=== PATIENT | male | born 1940 | race Caucasian/White ===

== ENCOUNTER 2017-03-13 10:10 | Inpatient (IN) | payer MEDICARE ==
--- NOTE | 2017-03-13 10:20 | EDM.PDOC ---
ED HPI GENERAL MEDICAL PROBLEM - General Chief Complaint: General Stated Complaint: Weakness Time Seen by Provider: 03/13/17 10:19 Source of Information: Reports: Patient, EMS Notes Reviewed, RN, RN Notes Reviewed History Limitations: Reports: No Limitations - History of Present Illness INITIAL COMMENTS - FREE TEXT/NARRATIVE: Patient is brought to the ED at [facility] via EMS for a chief complaint of weakness. Patient does not have a PCP and has not seen a medical provider in many many years. He currently does not take any prescription medications. He states local home health agency has been helping his with daily needs. According to the EMS crew, home health has not been allowed into the patients home in over a month. Home health called EMS for a welfare check. According to patient he has been feeling weak for about a month. Patient offers no specific complaints. Patient only complaint is feeling weak. Onset: Unknown/Unsure - Related Data Allergies Allergy/AdvReac Type Severity Reaction Status Date / Time No Known Allergies Allergy Verified 03/13/17 10:31 Home Meds: Home Meds . [No Known Home Meds] 03/13/17 [History] ED ROS GENERAL - Review of Systems Review Of Systems: See Below Constitutional: Reports: Weakness. Denies: Fever, Chills, Decreased Appetite Respiratory: Denies: Shortness of Breath, Cough Cardiovascular: Denies: Chest Pain, Palpitations GI/Abdominal: Denies: Abdominal Pain, Nausea, Vomiting Skin: Reports: No Symptoms Neurological: Reports: No Symptoms. 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), Left Eye: PERRL, Bilateral Eye: Normal Inspection Throat/Mouth: No Airway Compromise, Other (very poor dentition; multiple missing teeth; severe gingivitis; dry mucous membranes) Neck: Normal Inspection, Supple Respiratory/Chest: No Respiratory Distress, Lungs Clear, Normal Breath Sounds Cardiovascular: Normal Peripheral Pulses, Regular Rate, Rhythm Peripheral Pulses: 2+: Radial (L), Radial (R) GI/Abdominal: Normal Bowel Sounds, Soft, Non-Tender Neurological: Alert, Oriented Skin Exam: Warm, Dry, Intact EKG INTERPRETATION EKG Date: 03/13/17 Time: 10:28 Rhythm: NSR Rate (Beats/Min): 88 [place]: Normal P-Wave: Present QRS: Normal ST-T: Normal QT: Normal FL/PQ Interval: 0.12 Comparison: NA - No Prior EKG EKG Interpretation Comments: 1. Sinus Rhythm 2. ST Deviation and moderate T-wave abnormality, consider anterolateral ischemia Course - Vital Signs Last Recorded V/S: Last Vital Signs Temp 36.4 C 03/13/17 10:10 Pulse 103 H 03/13/17 10:10 Resp 16 03/13/17 10:10 BP 151/100 H 03/13/17 10:10 Pulse Ox 99 03/13/17 10:10 - Orders/Labs/Meds Orders: Active Orders 24 hr Category Date Time Status EKG 12 Lead [EKG Documentation Completion] [RC] STAT Care 03/13/17 10:21 Active Chest 1V Frontal [CR] Stat Exams 03/13/17 10:20 Taken UA W/MICROSCOPIC [URIN] Stat Lab 03/13/17 11:52 Uncollected Labs: Laboratory Tests 03/13/17 03/13/17 03/13/17 Range/Units 10:36 10:36 10:36 WBC 3.3 L (4.0-10.0) x10^3/uL RBC 5.03 (4.5-6.0) x10^6/uL Hgb 15.5 (14.0-18.0) g/dL Hct 43.6 (40.0-52.0) % MCV 86.7 (78.0-93.0) fL MCH 30.8 (26.0-32.0) pg MCHC 35.6 (32.0-36.0) g/dL RDW Coeff of Vernell 12.8 (10.0-15.0) % Plt Count 169 (130-400) x10^3/uL Neut % (Auto) 57.7 (50.0-80.0) % Lymph % (Auto) 27.4 (25.0-50.0) % [place] % (Auto) 14.6 H (2.0-11.0) % Eos % (Auto) 0.0 (0.0-4.0) % Baso % (Auto) 0.3 (0.2-1.2) % PT 11.6 (9.8-11.8) SEC INR 1.1 L (2.0-3.5) Sodium (136-145) mmol/L Potassium (3.5-5.1) mmol/L Chloride (98-107) mmol/L Carbon Dioxide (21-32) mmol/L BUN (7-18) mg/dL Creatinine (0.70-1.30) mg/dL Est Cr Clr Drug Dosing Estimated GFR (MDRD) Glucose (74-106) mg/dL Lactic Acid (0.4-2.0) mmol/L Calcium (8.5-10.1) mg/dL Corrected Calcium (8.5-10.1) mg/dL Magnesium (1.8-2.4) mg/dL Total Bilirubin (0.2-1.0) mg/dL AST (15-37) U/L ALT (16-63) U/L Alkaline Phosphatase (46-116) U/L Creatine Kinase 72 (39-308) U/L Creatine Kinase Index TNP CK-MB (CK-2) TNP Troponin I < 0.017 (<=0.056) ng/mL C-Reactive Protein (<=0.9) mg/dL Total Protein (6.4-8.2) g/dL Albumin (3.4-5.0) g/dL Globulin Albumin/Globulin Ratio 03/13/17 03/13/17 Range/Units 10:36 10:36 WBC (4.0-10.0) x10^3/uL RBC (4.5-6.0) x10^6/uL Hgb (14.0-18.0) g/dL Hct (40.0-52.0) % MCV (78.0-93.0) fL MCH (26.0-32.0) pg MCHC (32.0-36.0) g/dL RDW Coeff of Verenll (10.0-15.0) % Plt Count (130-400) x10^3/uL Neut % (Auto) (50.0-80.0) % Lymph % (Auto) (25.0-50.0) % [place] % (Auto) (2.0-11.0) % Eos % (Auto) (0.0-4.0) % Baso % (Auto) (0.2-1.2) % PT (9.8-11.8) SEC INR (2.0-3.5) Sodium 143 (136-145) mmol/L Potassium 3.0 L (3.5-5.1) mmol/L Chloride 98 (98-107) mmol/L Carbon Dioxide 25 (21-32) mmol/L BUN 25 H (7-18) mg/dL Creatinine 1.5 H (0.70-1.30) mg/dL Est Cr Clr Drug Dosing TNP Estimated GFR (MDRD) 45 Glucose 128 H (74-106) mg/dL Lactic Acid 3.8 H* (0.4-2.0) mmol/L Calcium 9.4 (8.5-10.1) mg/dL Corrected Calcium 9.56 (8.5-10.1) mg/dL Magnesium 1.8 (1.8-2.4) mg/dL Total Bilirubin 3.2 H (0.2-1.0) mg/dL AST 20 (15-37) U/L ALT 18 (16-63) U/L Alkaline Phosphatase 81 (46-116) U/L Creatine Kinase (39-308) U/L Creatine Kinase Index CK-MB (CK-2) Troponin I (<=0.056) ng/mL C-Reactive Protein < 0.3 (<=0.9) mg/dL Total Protein 7.6 (6.4-8.2) g/dL Albumin 3.8 (3.4-5.0) g/dL Globulin 3.8 Albumin/Globulin Ratio 1.00 - Radiology Interpretation Free Text/Narrative:: CXR: No acute process - see scanned report in EMR Departure - Departure Time of Disposition: 12:09 Disposition: Refer to Observation Condition: Fair Clinical Impression: Acute kidney injury (nontraumatic), Dehydration, Weakness - Discharge Information - Problem List Review Problem List Initiated/Reviewed/Updated: Yes - My Orders Last 24 Hours: My Active Orders 03/13/17 10:20 Chest 1V Frontal [CR] Stat 03/13/17 10:21 EKG 12 Lead [EKG Documentation Completion] [RC] STAT 03/13/17 11:52 UA W/MICROSCOPIC [URIN] Stat - Assessment/Plan Admission H&P: Please use this note as an admission H&P Last 24 Hours: My Active Orders 03/13/17 10:20 Chest 1V Frontal [CR] Stat 03/13/17 10:21 EKG 12 Lead [EKG Documentation Completion] [RC] STAT 03/13/17 11:52 UA W/MICROSCOPIC [URIN] Stat Plan: Labs and xray reviewed. Patient will be admitted to observation for dehydration , MILLY, and weakness. Patient aware and agrees with admission.
[2017-03-13 11:40] LABS: CHLORIDE,CL 98 mmol/L (98-107); SODIUM,NA 143 mmol/L (136-145)
[2017-03-13] MEDS ORDERED: Acetaminophen 325 MG Tab PO PRN (13:03)
[2017-03-13] MEDS ORDERED: Ondansetron 4 MG Tab.DIS PO PRN (13:03)
[2017-03-13] MEDS: Sodium Chloride 0.9% with KCl 1,000 ML IV SCH ×2 (13:53→21:29)
--- NOTE | 2017-03-13 14:41 | PCM.HP ---
H&P History of Present Illness - General Date of Service: 03/13/17 Admit Problem/Dx: Admission Diagnosis/Problem Admission Diagnosis/Problem Acute kidney injury Dehydration Weakness Source of Information: Patient, EMS Notes Reviewed, RN, RN Notes Reviewed History Limitations: Reports: No Limitations - History of Present Illness Initial Comments - Free Text/Narative: 77-year-old patient was seen in the emergency room earlier today after he was brought in by EMS for weakness. According to the EMS crew, the patient had been seen by home health over course of time. EMS was called by [facility] because the patient has not allowed home health in to his home for the past month and they were concerned. Upon EMS arrival the patient had complained of severe weakness so he was brought to the [facility] emergency room for further evaluation and possible treatment. During his ER stay, the patient did not have any chest pain or shortness of breath. The patient did not have a cough. The patient denied any abdominal complaints. The patient denied any neurological deficits. Patient denies any pain issues. The patient's only complaint was generalized weakness. The patient states that he has not seen a medical provider and many many years. The patient does not have any allergies. The patient is not taking any prescription home medications. It is unclear why home health is involved with this patient. His ER labs showed acute kidney injury secondary to dehydration. Assessment reyna the patient did have generalized weakness upon exam. The patient's lactic acid level is elevated at 3.8 with a low white blood cell count of 3.3. The patient' s lactic acid could be elevated due to his weakness and muscle atrophy. The etiology of low white blood cell count is unknown at this time. According to the [facility] case picker, the patient actually has been seen by the senior center here in the [facility]. The [facility] had been delivering meals to the patient but has been refusing over the past month. 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 Once the patient is medically stable, he will be set up with an appointment at [facility] in [place] for a follow-up appointment. Onset of Symptoms: Reports: Unknown/Unsure - Related Data Allergies/Adverse Reactions: Allergies Allergy/AdvReac Type Severity Reaction Status Date / Time No Known Allergies Allergy Verified 03/13/17 10:31 Home Medications: Home Meds . [No Known Home Meds] 03/13/17 [History] Past Medical History - Past Health History Medical/Surgical History: Denies Medical/Surgical History Social & Family History - Family History Family Medical History: Noncontributory - Tobacco Use Smoking Status *Q: Unknown Ever Smoked - Recreational Drug Use Recreational Drug Use: No H&P Review of Systems - Review of Systems: Review Of Systems: See Below General: Reports: Weakness. Denies: Fever, Chills, Decreased Appetite Pulmonary: Denies: Shortness of Breath, Cough Cardiovascular: Denies: Chest Pain, Palpitations Gastrointestinal: Denies: Abdominal Pain, Nausea, Vomiting Musculoskeletal: Reports: No Symptoms Skin: Reports: No Symptoms Neurological: Reports: No Symptoms. Denies: Dizziness, Headache Exam - Exam Exam: See Below - Vital Signs Vital Signs: Last Vital Signs Temp 36.0 C 03/13/17 12:33 Pulse 102 H 03/13/17 12:33 Resp 12 03/13/17 12:33 BP 137/91 H 03/13/17 12:33 Pulse Ox 100 03/13/17 12:33 Weight: 74.435 kg - Exam General: Alert, Oriented Neck: Supple Lungs: Clear to Auscultation, Normal Respiratory Effort Cardiovascular: Regular Rate, Regular Rhythm, Normal S1, Normal S2 GI/Abdominal Exam: Normal Bowel Sounds, Soft, Non-Tender Peripheral Pulses: 2+: Radial (L), Radial (R) Skin: Warm, Dry, Intact Neuro Extensive - Mental Status: Alert, Oriented x3 - Patient Data Result Diagrams: 03/13/17 10:36 03/13/17 10:36 *Q Meaningful Use (ADM) - VTE *Q VTE Criteria *Q: VTE Mechanical Contraindications *Q: At Risk for Falls - Stroke *Q Stroke Criteria *Q: - AMI *Q AMI Criteria *Q: - Problem List (1) Acute kidney injury (nontraumatic) SNOMED Code(s): 25457129 ICD Code: N17.9 - ACUTE KIDNEY FAILURE, UNSPECIFIED Status: Acute Priority: High Current Visit: Yes (2) Weakness SNOMED Code(s): 77289791 ICD Code: R53.1 - WEAKNESS Status: Acute Priority: Medium Current Visit : Yes (3) Dehydration SNOMED Code(s): 88762300 ICD Code: E86.0 - DEHYDRATION Status: Acute Priority: Medium Current Visit: Yes (4) Lactic acidosis SNOMED Code(s): 20666765 ICD Code: E87.2 - ACIDOSIS Status: Acute Priority: Medium Current Visit : Yes (5) Hypokalemia SNOMED Code(s): 49639572 ICD Code: E87.6 - HYPOKALEMIA Status: Acute Priority: Medium Current Visit: Yes Problem List Initiated/Reviewed/Updated: Yes Orders Last 24hrs: Active Orders 24 hr Category Date Time Status Patient Status [ADT] Routine ADT 03/13/17 13:03 Active Height and Weight [RC] UPON Care 03/13/17 13:03 Active Intake and Output [RC] 06,18 Care 03/13/17 13:04 Active May Shower [RC] 08 Care 03/13/17 13:03 Active Oxygen Therapy [RC] 08, Care 03/13/17 13:03 Active Up With Assistance [RC] 08,20 Care 03/13/17 13:03 Active VTE/DVT Education [RC] .PRN Care 03/13/17 13:03 Active Vital Signs [RC] 06,10,14,18,22,02 Care 03/13/17 13:03 Active Consult to Case Management [CONS] Routine Cons 03/13/17 13:03 Active OT Evaluation and Treatment [CONS] Routine Cons 03/13/17 13:03 Active PT Evaluation and Treatment [CONS] Routine Cons 03/13/17 13:03 Active Heart Healthy Diet [DIET] Diet 03/13/17 Breakfast Active LACTIC ACID [CHEM] Routine Lab 03/13/17 16:30 Ordered LACTIC ACID [CHEM] Routine Lab 03/13/17 19:30 Ordered Acetaminophen [Tylenol] Med 03/13/17 13:03 Active 650 mg PO Q4H PRN FLU Vacc [id number](65YR UP)/PF [Fluzone High-Dose 2017- Med 03/13/17 15:00 Once 18] 180 mcg IM ONETIME ONE Ondansetron [Zofran ODT] Med 03/13/17 13:03 Active 4 mg PO Q6H PRN Pneumococcal 23-Valent Conjug [Pneumovax 23] Med 03/13/17 15:00 Once 25 mcg IM .ONCE ONE Sodium Chloride 0.9% with KCl [Normal Saline with 40 Med 03/13/17 13:15 Active mEq KCl] 1,000 ml IV ASDIRECTED Resuscitation Status Routine Resus Stat 03/13/17 13:03 Ordered Medication Orders Acetaminophen (Tylenol) 650 mg PO Q4H PRN PRN Reason: Pain (Mild 1-3)/fever Potassium Chloride/Sodium Chloride (Normal Saline With 40 Meq Kcl) 1,000 mls @ 125 mls/hr IV ASDIRECTED KARIME Last Admin: 03/13/17 13:53 Dose: 125 mls/hr Influenza Virus Vaccine (Fluzone High-Dose ) 180 mcg IM ONETIME ONE Stop: 03/13/17 15:01 Ondansetron HCl (Zofran Odt) 4 mg PO Q6H PRN PRN Reason: nausea, able to take PO Pneumococcal Polyvalent Vaccine (Pneumovax 23) 25 mcg IM .ONCE ONE Stop: 03/13/17 15:01 Assessment/Plan Comment:: 77-year-old male patient with no past medical history is admitted to the observation unit at [facility] with a diagnosis of acute kidney injury, weakness, dehydration. The patient will be rehydrated with normal saline with 40 mEq of potassium IV. We will have physical and occupational therapy see this patient to assess his weakness and ADLs. Case management has artery been consult. Once IV fluid rehydration has been started we will recheck lactic acid levels over the next 6 hours. I believe the patient's lactic acidosis is secondary to his weakness and muscle atrophy. We will also continue to monitor the patient's white blood cell count. If the white blood cell count remains low the patient may need outpatient hematology/oncology referral. The patient currently is not taking any home medications. It is quite possible that the patient is suffering from depression due to change in social status. The patient will be scheduled for a hospital follow-up and establish care at [facility] upon discharge. If the patient requires longer than a 48 hour stay, Dr. Browne has accepted this patient for swing bed admission should the need arise. The patient is a full code. DVT prophylaxis is early ambulation. No anticoagulation is warranted due to the possibility of falls secondary to weakness. The patient does wish to be transferred to a higher level of care should the need arise.
[2017-03-13] MEDS ORDERED: Pneumococcal 23-Valent Conjugate Vaccine 0.5 ML Syringe IM ONE (15:00)
[2017-03-13] MEDS ORDERED: FLU Vacc TS 2017-18 (65yr UP)/PF 180 MCG/0.5 ML Syringe IM ONE ×2 (15:00)
[2017-03-14] MEDS: Sodium Chloride 0.9% with KCl 1,000 ML IV SCH ×2 (04:57→14:15)
[2017-03-14] MEDS ORDERED: Magnesium Sulfate/Water 2 GM in Premix Bag 1 BAG IV ONE (13:11)
--- NOTE | 2017-03-14 13:57 | PCM.PN ---
- General Info Date of Service: 03/14/17 Admission Dx/Problem (Free Text): UTI, weakness Subjective Update: Pt. states that he is feeling better. He is scheduled to see PT and social work administrator today. Denies any fever or chills. States that his weakness is resolving. Functional Status: Reports: Pain Controlled - Review of Systems General: Reports: No Symptoms HEENT: Reports: No Symptoms Pulmonary: Reports: No Symptoms Cardiovascular: Reports: No Symptoms Gastrointestinal: Reports: No Symptoms Genitourinary: Reports: No Symptoms Musculoskeletal: Reports: No Symptoms Skin: Reports: No Symptoms Neurological: Reports: Weakness Psychiatric: Reports: No Symptoms - Patient Data Vitals - Most Recent: Last Vital Signs Temp 35.7 C 03/14/17 10:00 Pulse 76 03/14/17 10:00 Resp 12 03/14/17 10:00 BP 119/83 03/14/17 10:00 Pulse Ox 100 03/14/17 10:00 Weight - Most Recent: 74.389 kg I&O - Last 24 Hours: Intake & Output 03/13/17 03/14/17 03/14/17 22:59 06:59 14:59 Intake Total 1374 2212 530 Output Total 2100 Balance 1374 112 530 Lab Results Last 24 Hours: Laboratory Results - last 24 hr 03/13/17 03/13/17 03/13/17 Range/Units 16:29 19:15 19:47 WBC (4.0-10.0) x10^3/uL RBC (4.5-6.0) x10^6/uL Hgb (14.0-18.0) g/dL Hct (40.0-52.0) % MCV (78.0-93.0) fL MCH (26.0-32.0) pg MCHC (32.0-36.0) g/dL RDW Coeff of Vernell (10.0-15.0) % Plt Count (130-400) x10^3/uL Neut % (Auto) (50.0-80.0) % Lymph % (Auto) (25.0-50.0) % [place] % (Auto) (2.0-11.0) % Eos % (Auto) (0.0-4.0) % Baso % (Auto) (0.2-1.2) % Sodium (136-145) mmol/L Potassium (3.5-5.1) mmol/L Chloride (98-107) mmol/L Carbon Dioxide (21-32) mmol/L BUN (7-18) mg/dL Creatinine (0.70-1.30) mg/dL Est Cr Clr Drug Dosing mL/min Estimated GFR (MDRD) Glucose (74-106) mg/dL Lactic Acid 2.2 H* 2.7 H* (0.4-2.0) mmol/L Calcium (8.5-10.1) mg/dL Magnesium (1.8-2.4) mg/dL Direct Bilirubin (0.00-0.20) mg/dL Lactate Dehydrogenase (85-227) U/L Urine Color Valerie H (YELLOW) Urine Appearance Slightly cloudy H (CLEAR) Urine pH 6.0 (5.0-8.0) Ur Specific [place] 1.020 Urine Protein 30 H (NEGATIVE) mg/dL Urine Glucose (UA) Negative (NEGATIVE) mg/dL Urine Ketones 15 H (NEGATIVE) mg/dL Urine Occult Blood Trace-intact H (NEGATIVE) Urine Nitrite Positive H (NEGATIVE) Urine Bilirubin Large H (NEGATIVE) Urine Urobilinogen 1.0 (0.2) EU/dL Ur Leukocyte Esterase Negative (NEGATIVE) Urine RBC 0-5 (NOT SEEN) /HPF Urine WBC 0-5 (NOT SEEN) /HPF Ur Squamous Epith Cells Rare (NEGATIVE) /HPF Urine Bacteria Rare (NEGATIVE) /HPF Urine Mucus Not seen (NEGATIVE) /LPF 03/14/17 03/14/17 03/14/17 Range/Units 06:47 06:47 06:47 WBC 2.9 L (4.0-10.0) x10^3/uL RBC 3.94 L (4.5-6.0) x10^6/uL Hgb 12.1 L D (14.0-18.0) g/dL Hct 35.1 L (40.0-52.0) % MCV 89.1 (78.0-93.0) fL MCH 30.7 (26.0-32.0) pg MCHC 34.5 (32.0-36.0) g/dL RDW Coeff of Vernell 12.6 (10.0-15.0) % Plt Count 129 L (130-400) x10^3/uL Neut % (Auto) 70.5 (50.0-80.0) % Lymph % (Auto) 19.2 L (25.0-50.0) % [place] % (Auto) 10.0 (2.0-11.0) % Eos % (Auto) 0.3 (0.0-4.0) % Baso % (Auto) 0.0 L (0.2-1.2) % Sodium 141 (136-145) mmol/L Potassium 4.0 (3.5-5.1) mmol/L Chloride 107 (98-107) mmol/L Carbon Dioxide 25 (21-32) mmol/L BUN 26 H (7-18) mg/dL Creatinine 1.2 (0.70-1.30) mg/dL Est Cr Clr Drug Dosing 54.24 mL/min Estimated GFR (MDRD) 59 Glucose 108 H (74-106) mg/dL Lactic Acid 1.4 (0.4-2.0) mmol/L Calcium 8.4 L (8.5-10.1) mg/dL Magnesium 1.6 L (1.8-2.4) mg/dL Direct Bilirubin (0.00-0.20) mg/dL Lactate Dehydrogenase (85-227) U/L Urine Color (YELLOW) Urine Appearance (CLEAR) Urine pH (5.0-8.0) Ur Specific [place] Urine Protein (NEGATIVE) mg/dL Urine Glucose (UA) (NEGATIVE) mg/dL Urine Ketones (NEGATIVE) mg/dL Urine Occult Blood (NEGATIVE) Urine Nitrite (NEGATIVE) Urine Bilirubin (NEGATIVE) Urine Urobilinogen (0.2) EU/dL Ur Leukocyte Esterase (NEGATIVE) Urine RBC (NOT SEEN) /HPF Urine WBC (NOT SEEN) /HPF Ur Squamous Epith Cells (NEGATIVE) /HPF Urine Bacteria (NEGATIVE) /HPF Urine Mucus (NEGATIVE) /LPF 03/14/17 Range/Units 06:47 WBC (4.0-10.0) x10^3/uL RBC (4.5-6.0) x10^6/uL Hgb (14.0-18.0) g/dL Hct (40.0-52.0) % MCV (78.0-93.0) fL MCH (26.0-32.0) pg MCHC (32.0-36.0) g/dL RDW Coeff of Vernell (10.0-15.0) % Plt Count (130-400) x10^3/uL Neut % (Auto) (50.0-80.0) % Lymph % (Auto) (25.0-50.0) % [place] % (Auto) (2.0-11.0) % Eos % (Auto) (0.0-4.0) % Baso % (Auto) (0.2-1.2) % Sodium (136-145) mmol/L Potassium (3.5-5.1) mmol/L Chloride (98-107) mmol/L Carbon Dioxide (21-32) mmol/L BUN (7-18) mg/dL Creatinine (0.70-1.30) mg/dL Est Cr Clr Drug Dosing mL/min Estimated GFR (MDRD) Glucose (74-106) mg/dL Lactic Acid (0.4-2.0) mmol/L Calcium (8.5-10.1) mg/dL Magnesium (1.8-2.4) mg/dL Direct Bilirubin 0.41 H (0.00-0.20) mg/dL Lactate Dehydrogenase 148 (85-227) U/L Urine Color (YELLOW) Urine Appearance (CLEAR) Urine pH (5.0-8.0) Ur Specific [place] Urine Protein (NEGATIVE) mg/dL Urine Glucose (UA) (NEGATIVE) mg/dL Urine Ketones (NEGATIVE) mg/dL Urine Occult Blood (NEGATIVE) Urine Nitrite (NEGATIVE) Urine Bilirubin (NEGATIVE) Urine Urobilinogen (0.2) EU/dL Ur Leukocyte Esterase (NEGATIVE) Urine RBC (NOT SEEN) /HPF Urine WBC (NOT SEEN) /HPF Ur Squamous Epith Cells (NEGATIVE) /HPF Urine Bacteria (NEGATIVE) /HPF Urine Mucus (NEGATIVE) /LPF Med Orders - Current: Current Medications Acetaminophen (Tylenol) 650 mg PO Q4H PRN PRN Reason: Pain (Mild 1-3)/fever Potassium Chloride/Sodium Chloride (Normal Saline With 40 Meq Kcl) 1,000 mls @ 125 mls/hr IV ASDIRECTED KARIME Last Admin: 03/14/17 04:57 Dose: 125 mls/hr Magnesium Sulfate 2 gm/ Premix 50 mls @ 25 mls/hr IV ONETIME ONE Stop: 03/14/17 15:10 Ondansetron HCl (Zofran Odt) 4 mg PO Q6H PRN PRN Reason: nausea, able to take PO Discontinued Medications Influenza Virus Vaccine (Fluzone High-Dose ) 180 mcg IM ONETIME ONE Stop: 03/13/17 15:01 Last Admin: 03/13/17 15:35 Dose: 180 mcg Pneumococcal Polyvalent Vaccine (Pneumovax 23) 25 mcg IM .ONCE ONE Stop: 03/13/17 15:01 Last Admin: 03/13/17 15:39 Dose: 25 mcg - Exam General: Alert, Oriented HEENT: Pupils Equal, Pupils Reactive, EOMI, Mucous Membr. Moist/[place] Neck: Supple Lungs: Clear to Auscultation, Normal Respiratory Effort Cardiovascular: Regular Rate, Regular Rhythm GI/Abdominal Exam: Normal Bowel Sounds, Soft, Non-Tender, No Organomegaly, No Distention (Male) Exam: No Hernia, Normal Inspection Back Exam: Normal Inspection, Full Range of Motion Extremities: Normal Inspection, Normal Range of Motion, Non-Tender, No Pedal Edema, Normal Capillary Refill - Problem List & Annotations (1) UTI (urinary tract infection) SNOMED Code(s): 26127224 Code(s): N39.0 - URINARY TRACT INFECTION, SITE NOT SPECIFIED Status: Acute Current Visit: Yes Qualifiers: Urinary tract infection type: acute cystitis (2) Dehydration SNOMED Code(s): 79996723 Code(s): E86.0 - DEHYDRATION Status: Acute Priority: Medium Current Visit: Yes (3) Weakness SNOMED Code(s): 37428934 Code(s): R53.1 - WEAKNESS Status: Acute Priority: Medium Current Visit : Yes - Problem List Review Problem List Initiated/Reviewed/Updated: Yes - Plan Plan:: 77-year-old male patient with no past medical history is admitted to the observation unit at [facility] with a diagnosis of acute kidney injury, weakness, dehydration. The patient will be rehydrated with normal saline with 40 mEq of potassium IV. We will have physical and occupational therapy see this patient to assess his weakness and ADLs. Case management has artery been consult. Once IV fluid rehydration has been started we will recheck lactic acid levels over the next 6 hours. I believe the patient's lactic acidosis is secondary to his weakness and muscle atrophy. We will also continue to monitor the patient's white blood cell count. If the white blood cell count remains low the patient may need outpatient hematology/oncology referral. The patient currently is not taking any home medications. It is quite possible that the patient is suffering from depression due to change in social status. The patient will be scheduled for a hospital follow-up and establish care at [facility] upon discharge. If the patient requires longer than a 48 hour stay, Dr. Browne has accepted this patient for swing bed admission should the need arise. The patient is a full code. DVT prophylaxis is early ambulation. No anticoagulation is warranted due to the possibility of falls secondary to weakness. The patient does wish to be transferred to a higher level of care should the need arise.
--- NOTE | 2017-03-14 14:42 | PCM.PN ---
- General Info Date of Service: 03/14/17 Admission Dx/Problem (Free Text): Acute Kidney Injury Weakness Dehydration Hypomagnesemia Hypokalemia Lactic Acidosis Subjective Update: Since seen and examined today. The patient states that he is having some abdominal discomfort at times. The patient states he feels like he has a dull ache generally feel the abdomen. Otherwise the patient has no other complaints. The patient denies any chest pain or shortness of breath. The patient states that he is urinating okay with the Charlton catheter in place. The patient has not been seen by physical or occupational therapy yet. The patient has been up to the chair one time, he states he is still considerably weak and feels unsteady on his feet. Otherwise no other concerns. Functional Status: Reports: Pain Controlled, Tolerating Diet Pain Score: 2 - Review of Systems General: Reports: Weakness, Fatigue. Denies: Fever, Chills Pulmonary: Denies: Shortness of Breath, Cough Cardiovascular: Denies: Chest Pain, Palpitations Gastrointestinal: Reports: Abdominal Pain (generalized discomfort). Denies: Nausea, Vomiting Skin: Reports: No Symptoms Neurological: Reports: No Symptoms. Denies: Dizziness, Headache - Patient Data Vitals - Most Recent: Last Vital Signs Temp 35.7 C 03/14/17 10:00 Pulse 76 03/14/17 10:00 Resp 12 03/14/17 10:00 BP 119/83 03/14/17 10:00 Pulse Ox 100 03/14/17 10:00 Weight - Most Recent: 74.389 kg I&O - Last 24 Hours: Intake & Output 03/13/17 03/14/17 03/14/17 22:59 06:59 14:59 Intake Total 1374 2212 530 Output Total 2100 Balance 1374 112 530 Lab Results Last 24 Hours: Laboratory Results - last 24 hr 03/13/17 03/13/17 03/13/17 Range/Units 16:29 19:15 19:47 WBC (4.0-10.0) x10^3/uL RBC (4.5-6.0) x10^6/uL Hgb (14.0-18.0) g/dL Hct (40.0-52.0) % MCV (78.0-93.0) fL MCH (26.0-32.0) pg MCHC (32.0-36.0) g/dL RDW Coeff of Vernell (10.0-15.0) % Plt Count (130-400) x10^3/uL Neut % (Auto) (50.0-80.0) % Lymph % (Auto) (25.0-50.0) % [place] % (Auto) (2.0-11.0) % Eos % (Auto) (0.0-4.0) % Baso % (Auto) (0.2-1.2) % Sodium (136-145) mmol/L Potassium (3.5-5.1) mmol/L Chloride (98-107) mmol/L Carbon Dioxide (21-32) mmol/L BUN (7-18) mg/dL Creatinine (0.70-1.30) mg/dL Est Cr Clr Drug Dosing mL/min Estimated GFR (MDRD) Glucose (74-106) mg/dL Lactic Acid 2.2 H* 2.7 H* (0.4-2.0) mmol/L Calcium (8.5-10.1) mg/dL Magnesium (1.8-2.4) mg/dL Direct Bilirubin (0.00-0.20) mg/dL Lactate Dehydrogenase (85-227) U/L Urine Color Valerie H (YELLOW) Urine Appearance Slightly cloudy H (CLEAR) Urine pH 6.0 (5.0-8.0) Ur Specific Verm[place] 1.020 Urine Protein 30 H (NEGATIVE) mg/dL Urine Glucose (UA) Negative (NEGATIVE) mg/dL Urine Ketones 15 H (NEGATIVE) mg/dL Urine Occult Blood Trace-intact H (NEGATIVE) Urine Nitrite Positive H (NEGATIVE) Urine Bilirubin Large H (NEGATIVE) Urine Urobilinogen 1.0 (0.2) EU/dL Ur Leukocyte Esterase Negative (NEGATIVE) Urine RBC 0-5 (NOT SEEN) /HPF Urine WBC 0-5 (NOT SEEN) /HPF Ur Squamous Epith Cells Rare (NEGATIVE) /HPF Urine Bacteria Rare (NEGATIVE) /HPF Urine Mucus Not seen (NEGATIVE) /LPF 03/14/17 03/14/17 03/14/17 Range/Units 06:47 06:47 06:47 WBC 2.9 L (4.0-10.0) x10^3/uL RBC 3.94 L (4.5-6.0) x10^6/uL Hgb 12.1 L D (14.0-18.0) g/dL Hct 35.1 L (40.0-52.0) % MCV 89.1 (78.0-93.0) fL MCH 30.7 (26.0-32.0) pg MCHC 34.5 (32.0-36.0) g/dL RDW Coeff of Vernell 12.6 (10.0-15.0) % Plt Count 129 L (130-400) x10^3/uL Neut % (Auto) 70.5 (50.0-80.0) % Lymph % (Auto) 19.2 L (25.0-50.0) % [place] % (Auto) 10.0 (2.0-11.0) % Eos % (Auto) 0.3 (0.0-4.0) % Baso % (Auto) 0.0 L (0.2-1.2) % Sodium 141 (136-145) mmol/L Potassium 4.0 (3.5-5.1) mmol/L Chloride 107 (98-107) mmol/L Carbon Dioxide 25 (21-32) mmol/L BUN 26 H (7-18) mg/dL Creatinine 1.2 (0.70-1.30) mg/dL Est Cr Clr Drug Dosing 54.24 mL/min Estimated GFR (MDRD) 59 Glucose 108 H (74-106) mg/dL Lactic Acid 1.4 (0.4-2.0) mmol/L Calcium 8.4 L (8.5-10.1) mg/dL Magnesium 1.6 L (1.8-2.4) mg/dL Direct Bilirubin (0.00-0.20) mg/dL Lactate Dehydrogenase (85-227) U/L Urine Color (YELLOW) Urine Appearance (CLEAR) Urine pH (5.0-8.0) Ur Specific [place] Urine Protein (NEGATIVE) mg/dL Urine Glucose (UA) (NEGATIVE) mg/dL Urine Ketones (NEGATIVE) mg/dL Urine Occult Blood (NEGATIVE) Urine Nitrite (NEGATIVE) Urine Bilirubin (NEGATIVE) Urine Urobilinogen (0.2) EU/dL Ur Leukocyte Esterase (NEGATIVE) Urine RBC (NOT SEEN) /HPF Urine WBC (NOT SEEN) /HPF Ur Squamous Epith Cells (NEGATIVE) /HPF Urine Bacteria (NEGATIVE) /HPF Urine Mucus (NEGATIVE) /LPF 03/14/17 Range/Units 06:47 WBC (4.0-10.0) x10^3/uL RBC (4.5-6.0) x10^6/uL Hgb (14.0-18.0) g/dL Hct (40.0-52.0) % MCV (78.0-93.0) fL MCH (26.0-32.0) pg MCHC (32.0-36.0) g/dL RDW Coeff of Vernell (10.0-15.0) % Plt Count (130-400) x10^3/uL Neut % (Auto) (50.0-80.0) % Lymph % (Auto) (25.0-50.0) % [place] % (Auto) (2.0-11.0) % Eos % (Auto) (0.0-4.0) % Baso % (Auto) (0.2-1.2) % Sodium (136-145) mmol/L Potassium (3.5-5.1) mmol/L Chloride (98-107) mmol/L Carbon Dioxide (21-32) mmol/L BUN (7-18) mg/dL Creatinine (0.70-1.30) mg/dL Est Cr Clr Drug Dosing mL/min Estimated GFR (MDRD) Glucose (74-106) mg/dL Lactic Acid (0.4-2.0) mmol/L Calcium (8.5-10.1) mg/dL Magnesium (1.8-2.4) mg/dL Direct Bilirubin 0.41 H (0.00-0.20) mg/dL Lactate Dehydrogenase 148 (85-227) U/L Urine Color (YELLOW) Urine Appearance (CLEAR) Urine pH (5.0-8.0) Ur Specific [place] Urine Protein (NEGATIVE) mg/dL Urine Glucose (UA) (NEGATIVE) mg/dL Urine Ketones (NEGATIVE) mg/dL Urine Occult Blood (NEGATIVE) Urine Nitrite (NEGATIVE) Urine Bilirubin (NEGATIVE) Urine Urobilinogen (0.2) EU/dL Ur Leukocyte Esterase (NEGATIVE) Urine RBC (NOT SEEN) /HPF Urine WBC (NOT SEEN) /HPF Ur Squamous Epith Cells (NEGATIVE) /HPF Urine Bacteria (NEGATIVE) /HPF Urine Mucus (NEGATIVE) /LPF Med Orders - Current: Current Medications Acetaminophen (Tylenol) 650 mg PO Q4H PRN PRN Reason: Pain (Mild 1-3)/fever Potassium Chloride/Sodium Chloride (Normal Saline With 40 Meq Kcl) 1,000 mls @ 125 mls/hr IV ASDIRECTED [facility] Last Admin: 03/14/17 14:15 Dose: 125 mls/hr Magnesium Sulfate 2 gm/ Premix 50 mls @ 25 mls/hr IV ONETIME ONE Stop: 03/14/17 15:10 Last Admin: 03/14/17 14:15 Dose: 25 mls/hr Ondansetron HCl (Zofran Odt) 4 mg PO Q6H PRN PRN Reason: nausea, able to take PO Discontinued Medications Influenza Virus Vaccine (Fluzone High-Dose ) 180 mcg IM ONETIME ONE Stop: 03/13/17 15:01 Last Admin: 03/13/17 15:35 Dose: 180 mcg Pneumococcal Polyvalent Vaccine (Pneumovax 23) 25 mcg IM .ONCE ONE Stop: 03/13/17 15:01 Last Admin: 03/13/17 15:39 Dose: 25 mcg - Exam Quality Assessment: Urine Catheter, DVT Prophylaxis (early ambulation) General: Alert, Oriented, Cooperative Lungs: Clear to Auscultation, Normal Respiratory Effort Cardiovascular: Regular Rate, Regular Rhythm GI/Abdominal Exam: Soft, Tender (throughout general abdomen), Abnormal Bowel Sounds (Hypoactive) Peripheral Pulses: 2+: Radial (L), Radial (R) Skin: Warm, Dry, Intact Neurological: No New Focal Deficit - Problem List & Annotations (1) Acute kidney injury (nontraumatic) SNOMED Code(s): 36752601 Code(s): N17.9 - ACUTE KIDNEY FAILURE, UNSPECIFIED Status: Acute Priority : High Current Visit: Yes (2) Weakness SNOMED Code(s): 84645229 Code(s): R53.1 - WEAKNESS Status: Acute Priority: Medium Current Visit : Yes (3) Dehydration SNOMED Code(s): 57256042 Code(s): E86.0 - DEHYDRATION Status: Acute Priority: Medium Current Visit: Yes (4) Lactic acidosis SNOMED Code(s): 68196753 Code(s): E87.2 - ACIDOSIS Status: Resolved Priority: Medium Current Visit: Yes (5) Hypokalemia SNOMED Code(s): 98710728 Code(s): E87.6 - HYPOKALEMIA Status: Resolved Priority: Medium Current Visit: Yes (6) Abdominal pain SNOMED Code(s): 65600126 Code(s): R10.9 - UNSPECIFIED ABDOMINAL PAIN Status: Acute Current Visit: No Onset Date: ~03/14/17 Qualifiers: Abdominal location: generalized Qualified Code(s): R10.84 - Generalized abdominal pain - Problem List Review Problem List Initiated/Reviewed/Updated: Yes - My Orders Last 24 Hours: My Active Orders 03/13/17 19:06 Urinary Catheter Assessment [RC] 08,20 03/13/17 19:15 Charlton Catheter Insertion [Insert Urinary Catheter] [OM.PC] Q24H 03/14/17 13:11 Magnesium Sulfate/Water [Magnesium Sulfate 2 GM in Water 50 ML] 2 gm Premix Bag 1 bag IV ONETIME 03/14/17 13:25 Resuscitation Status Routine 03/14/17 13:30 BLOOD SMEARS TO PATHOLOGIST [REF] Routine HAPTOGLOBIN [REF] Routine HEPATITIS PANEL, ACUTE [REF] Routine 03/14/17 14:28 Abdomen Pelvis w Cont [CT] Routine 03/14/17 14:40 AMYLASE [CHEM] Routine LIPASE [CHEM] Routine 03/15/17 05:11 CBC WITH AUTO DIFF [HEME] Routine CMP [COMPREHENSIVE METABOLIC PN,CMP] [CHEM] Routine MAGNESIUM [CHEM] Routine - Plan Plan:: 77-year-old male patient with no past medical history is admitted to the observation unit at [facility] with a diagnosis of acute kidney injury, weakness, dehydration. The patient's acute kidney injury is responded well to fluid resuscitation. The patient still has an elevated BUNs but the creatinine has normalized. The patient's lactic acidosis is also resolved secondary to fluid rehydration. The patient does have some diffuse abdominal pain, therefore I'm going to obtain a CT scan of the abdomen and pelvis with contrast, also the patient has elevated bilirubin, large urine bilirubin. We will continue working on the placement of this patient to the [facility]. I will contact Dr. Browne to see if he is willing to accept this patient at the [facility]. His hemogram is somewhat suspicious with a low white blood cell count and low platelet, therefore obtain a peripheral smear today. I'm also check an amylase and lipase. I am suspicious there may be something of the patient's abdomen specifically no liver that may reveal an etiology for abnormal blood test. Plan of care was discussed with the patient and he wishes to proceed. The case management is working closely with placement to the [facility]. The patient has not been seen by physical or occupational therapy today. I will follow up with them to see if the patient is on the schedule to be seen. The patient's critical access 48 hours is up tomorrow. If the patient does require further therapies, he will be changed to acute status tomorrow. The patient's CODE STATUS was changed to code 2 per his wishes after a lengthy discussion today. The patient is requesting is very agreeable to go to the [facility] after he is medically stable. I will recheck blood work in the morning tomorrow. I'll await the results of the CT scan and additional blood work to determine any further treatment. After the patient has the CT scan today, we will stop his IV fluids once this current bag is empty. The patient will also get 2 g of IV magnesium for his low magnesium level today. We will recheck in this morning as well.
[2017-03-14] MEDS ORDERED: Iopamidol 612 MG/ML 100 ML Bottle IVPUSH ONE (16:50)
[2017-03-15 07:31] LABS: CHLORIDE,CL 107 mmol/L (98-107); SODIUM,NA 139 mmol/L (136-145)
[2017-03-15] MEDS ORDERED: Magnesium Sulfate/Water 2 GM in Premix Bag 1 BAG IV ONE (09:35)
[2017-03-15] MEDS: Sodium Chloride 0.9% with KCl 1,000 ML IV SCH ×2 (10:07→17:59)
[2017-03-15] MEDS ORDERED: Sodium Chloride 0.9% 10 ML Syringe FLUSH PRN (18:06)
--- NOTE | 2017-03-16 01:03 | PCM.PN ---
- General Info Date of Service: 03/15/17 Admission Dx/Problem (Free Text): Acute Kidney Injury Weakness Dehydration Hypomagnesemia Hypokalemia Lactic Acidosis Subjective Update: Since seen and examined today. Patient states that he is feeling a little bit better today. The patient states his abdominal pain has resolved. The patient is very concerned about his profound weakness. The patient states he is having trouble getting from the bed to the chair. The patient states that he is not having any trouble with urination or bowel movements. The patient states that his appetite has been good otherwise no other concerns. - Review of Systems General: Reports: Weakness, Fatigue. Denies: Fever, Chills Pulmonary: Denies: Shortness of Breath, Cough Cardiovascular: Denies: Chest Pain, Palpitations Gastrointestinal: Denies: Abdominal Pain, Nausea, Vomiting Skin: Reports: No Symptoms Neurological: Reports: No Symptoms - Patient Data Vitals - Most Recent: Last Vital Signs Temp 36.7 C 03/15/17 21:52 Pulse 68 03/15/17 21:52 Resp 19 03/15/17 21:52 BP 143/76 H 03/15/17 21:52 Pulse Ox 99 03/15/17 21:52 Weight - Most Recent: 74.389 kg I&O - Last 24 Hours: Intake & Output 03/15/17 03/15/17 03/16/17 14:59 22:59 06:59 Intake Total 1220 1674 Output Total 450 Balance 1220 1224 Lab Results Last 24 Hours: Laboratory Results - last 24 hr 03/14/17 03/14/17 03/15/17 Range/Units 13:30 13:30 05:30 WBC 2.6 L (3.9-11.3) x10-3 ul RBC 4.12 L (4.52-5.90) x10-6 ul Hgb 12.6 L (14.0-18.0) gm/dL Hct 35.9 L (42.0-52.0) % MCV 87 (83-99) fL MCH 30.6 (28.0-32.0) pg MCHC 35.1 (32.0-36.0) g/dL RDW 13.6 (11.2-15.2) RDW Coeff of Vernell (10.0-15.0) % Plt Count 135 L (150-400) x10-3 ul Neut % (Auto) (50.0-80.0) % Lymph % (Auto) (25.0-50.0) % Bartholomew % (Auto) (2.0-11.0) % Eos % (Auto) (0.0-4.0) % Baso % (Auto) (0.2-1.2) % Neutrophils % (Manual) 67 % Band Neuts % (Manual) 1 % Lymphocytes % (Manual) 22 % Monocytes % (Manual) 8 % Eosinophils % (Manual) 1 % Basophils % (Manual) 1 % Neutrophils # (Manual) 1.74 L (1.80-7.00) x10-3 ul Band Neutrophils # Man 0.03 (0.00-0.70) x10-3 ul Lymphocytes # (Manual) 0.57 L (1.00-4.80) x10-3 ul Monocytes # (Manual) 0.21 (0.00-0.80) x10-3 ul Eosinophils # (Manual) 0.03 (0.00-0.45) x10-3 ul Basophils # (Manual) 0.03 (0.00-0.20) x10-3 ul RBC/WBC/PLT Morphology Abnormal Platelet Estimate Mild dec Ovalocytes 2+ Bath Cells 1+ RBC Fragments 1+ Smear Path Review Path rpt Absolute Retic 0.0186 L (0.0200-0.1000) Percent Retic 0.5 (0.3-2.2) % Haptoglobin 60 (44-215) mg/dL Sodium (136-145) mmol/L Potassium (3.5-5.1) mmol/L Chloride (98-107) mmol/L Carbon Dioxide (21-32) mmol/L BUN (7-18) mg/dL Creatinine (0.70-1.30) mg/dL Est Cr Clr Drug Dosing mL/min Estimated GFR (MDRD) Glucose (74-106) mg/dL Calcium (8.5-10.1) mg/dL Corrected Calcium (8.5-10.1) mg/dL Magnesium (1.8-2.4) mg/dL Total Bilirubin (0.2-1.0) mg/dL Direct Bilirubin (0.00-0.20) mg/dL AST (15-37) U/L ALT (16-63) U/L Alkaline Phosphatase (46-116) U/L Total Protein (6.4-8.2) g/dL Albumin (3.4-5.0) g/dL Globulin Albumin/Globulin Ratio Urine Color Yellow (YELLOW) Urine Appearance Clear (CLEAR) Urine pH 6.0 (5.0-8.0) Ur Specific Triplett 1.015 Urine Protein Negative (NEGATIVE) mg/dL Urine Glucose (UA) Negative (NEGATIVE) mg/dL Urine Ketones Negative (NEGATIVE) mg/dL Urine Occult Blood Small H (NEGATIVE) Urine Nitrite Negative (NEGATIVE) Urine Bilirubin Negative (NEGATIVE) Urine Urobilinogen 1.0 (0.2) EU/dL Ur Leukocyte Esterase Negative (NEGATIVE) Urine RBC 0-5 (NOT SEEN) /HPF Urine WBC 0-5 (NOT SEEN) /HPF Ur Squamous Epith Cells Not seen (NEGATIVE) /HPF Urine Bacteria Not seen (NEGATIVE) /HPF Hyaline Casts Rare H (NEGATIVE) /HPF Urine Mucus Not seen (NEGATIVE) /LPF 03/15/17 03/15/17 Range/Units 06:41 06:41 WBC 2.2 L (3.9-11.3) x10-3 ul RBC 3.68 L (4.52-5.90) x10-6 ul Hgb 11.2 L (14.0-18.0) gm/dL Hct 33.1 L (42.0-52.0) % MCV 89.9 (83-99) fL MCH 30.4 (28.0-32.0) pg MCHC 33.8 (32.0-36.0) g/dL RDW (11.2-15.2) RDW Coeff of Vernell 12.8 (10.0-15.0) % Plt Count 108 L (150-400) x10-3 ul Neut % (Auto) 52.9 (50.0-80.0) % Lymph % (Auto) 31.2 (25.0-50.0) % Bartholomew % (Auto) 14.0 H (2.0-11.0) % Eos % (Auto) 1.4 (0.0-4.0) % Baso % (Auto) 0.5 (0.2-1.2) % Neutrophils % (Manual) % Band Neuts % (Manual) % Lymphocytes % (Manual) % Monocytes % (Manual) % Eosinophils % (Manual) % Basophils % (Manual) % Neutrophils # (Manual) (1.80-7.00) x10-3 ul Band Neutrophils # Man (0.00-0.70) x10-3 ul Lymphocytes # (Manual) (1.00-4.80) x10-3 ul Monocytes # (Manual) (0.00-0.80) x10-3 ul Eosinophils # (Manual) (0.00-0.45) x10-3 ul Basophils # (Manual) (0.00-0.20) x10-3 ul RBC/WBC/PLT Morphology Platelet Estimate Ovalocytes Fabián Cells RBC Fragments Smear Path Review Absolute Retic (0.0200-0.1000) Percent Retic (0.3-2.2) % Haptoglobin (44-215) mg/dL Sodium 139 (136-145) mmol/L Potassium 4.2 (3.5-5.1) mmol/L Chloride 107 (98-107) mmol/L Carbon Dioxide 25 (21-32) mmol/L BUN 21 H (7-18) mg/dL Creatinine 1.1 (0.70-1.30) mg/dL Est Cr Clr Drug Dosing 59.17 mL/min Estimated GFR (MDRD) > 60 Glucose 100 (74-106) mg/dL Calcium 8.2 L (8.5-10.1) mg/dL Corrected Calcium 9.32 (8.5-10.1) mg/dL Magnesium 1.7 L (1.8-2.4) mg/dL Total Bilirubin 1.6 H (0.2-1.0) mg/dL Direct Bilirubin 0.38 H (0.00-0.20) mg/dL AST 15 (15-37) U/L ALT 16 (16-63) U/L Alkaline Phosphatase 60 (46-116) U/L Total Protein 5.5 L (6.4-8.2) g/dL Albumin 2.6 L (3.4-5.0) g/dL Globulin 2.9 Albumin/Globulin Ratio 0.90 Urine Color (YELLOW) Urine Appearance (CLEAR) Urine pH (5.0-8.0) Ur Specific Triplett Urine Protein (NEGATIVE) mg/dL Urine Glucose (UA) (NEGATIVE) mg/dL Urine Ketones (NEGATIVE) mg/dL Urine Occult Blood (NEGATIVE) Urine Nitrite (NEGATIVE) Urine Bilirubin (NEGATIVE) Urine Urobilinogen (0.2) EU/dL Ur Leukocyte Esterase (NEGATIVE) Urine RBC (NOT SEEN) /HPF Urine WBC (NOT SEEN) /HPF Ur Squamous Epith Cells (NEGATIVE) /HPF Urine Bacteria (NEGATIVE) /HPF Hyaline Casts (NEGATIVE) /HPF Urine Mucus (NEGATIVE) /LPF Med Orders - Current: Current Medications Acetaminophen (Tylenol) 650 mg PO Q4H PRN PRN Reason: Pain (Mild 1-3)/fever Ondansetron HCl (Zofran Odt) 4 mg PO Q6H PRN PRN Reason: nausea, able to take PO Sodium Chloride (Saline Flush) 10 ml FLUSH ASDIRECTED PRN PRN Reason: Keep Vein Open Discontinued Medications Potassium Chloride/Sodium Chloride (Normal Saline With 40 Meq Kcl) 1,000 mls @ 125 mls/hr IV ASDIRECTED [facility] Last Admin: 03/15/17 17:59 Dose: 125 mls/hr Magnesium Sulfate 2 gm/ Premix 50 mls @ 25 mls/hr IV ONETIME ONE Stop: 03/14/17 15:10 Last Admin: 03/14/17 14:15 Dose: 25 mls/hr Magnesium Sulfate 2 gm/ Premix 50 mls @ 25 mls/hr IV ONETIME ONE Stop: 03/15/17 11:34 Last Admin: 03/15/17 10:07 Dose: 25 mls/hr Influenza Virus Vaccine (Fluzone High-Dose ) 180 mcg IM .ONCE ONE Stop: 03/13/17 15:01 Last Admin: 03/15/17 14:59 Dose: 180 mcg Iopamidol (Isovue-300 (61%)) 100 ml IVPUSH ONETIME ONE Stop: 03/14/17 16:51 Last Admin: 03/14/17 16:52 Dose: 100 ml Pneumococcal Polyvalent Vaccine (Pneumovax 23) 25 mcg IM .ONCE ONE Stop: 03/13/17 15:01 Last Admin: 03/13/17 15:39 Dose: 25 mcg - Exam Quality Assessment: Urine Catheter, Skin Breakdown General: Alert, Oriented Neck: Supple Lungs: Clear to Auscultation, Normal Respiratory Effort Cardiovascular: Regular Rate, Regular Rhythm, No Murmurs GI/Abdominal Exam: Normal Bowel Sounds, Soft, Non-Tender Extremities: Other (venous stasis bilateral lower extremities) Skin: Warm, Dry, Intact Neurological: No New Focal Deficit - Problem List & Annotations (1) Acute kidney injury (nontraumatic) SNOMED Code(s): 79718411 Code(s): N17.9 - ACUTE KIDNEY FAILURE, UNSPECIFIED Status: Acute Priority : High Current Visit: Yes (2) Weakness SNOMED Code(s): 30005686 Code(s): R53.1 - WEAKNESS Status: Acute Priority: Medium Current Visit : Yes (3) Dehydration SNOMED Code(s): 23821234 Code(s): E86.0 - DEHYDRATION Status: Acute Priority: Medium Current Visit: Yes (4) Lactic acidosis SNOMED Code(s): 36032060 Code(s): E87.2 - ACIDOSIS Status: Resolved Priority: Medium Current Visit: Yes (5) Hypokalemia SNOMED Code(s): 47005288 Code(s): E87.6 - HYPOKALEMIA Status: Resolved Priority: Medium Current Visit: Yes (6) Abdominal pain SNOMED Code(s): 95802683 Code(s): R10.9 - UNSPECIFIED ABDOMINAL PAIN Status: Acute Current Visit: No Onset Date: ~03/14/17 Qualifiers: Abdominal location: generalized Qualified Code(s): R10.84 - Generalized abdominal pain - Problem List Review Problem List Initiated/Reviewed/Updated: Yes - My Orders Last 24 Hours: My Active Orders 03/15/17 13:14 Patient Status [ADT] Routine 03/15/17 18:06 Sodium Chloride 0.9% [Saline Flush] 10 ml FLUSH ASDIRECTED PRN Convert IV to Saline Lock [OM.PC] Routine 03/16/17 05:11 CBC WITH AUTO DIFF [HEME] Routine COMPREHENSIVE METABOLIC PN,CMP [CHEM] Routine MAGNESIUM [CHEM] Routine - Plan Plan:: 77-year-old male patient with no past medical history is admitted to the observation unit at [facility] with a diagnosis of acute kidney injury, weakness, dehydration. The patient's acute kidney injury is responded well to fluid resuscitation. The patient still has an elevated BUNs but the creatinine has normalized. The patient's lactic acidosis is also resolved secondary to fluid rehydration. The patient's abdominal pain has resolved. The patient's bilirubin is getting better slowly. The patient continues to have profound weakness and does require the skilled services of physical and occupational therapy. Therefore, the patient will be changed to acute status today and start acute cares. We'll continue to monitor the patient's lab work for his kidney function and bilirubin. The patient's abdominal CT scan was discussed with him in which it only showed some mild cholecystitis. We will supplement the patient's low magnesium again today with 2 g of IV magnesium. At the time of this dictation, we are still awaiting placement to the [facility]. Once patient is accepted, Dr. Browne will be contacted to admit the patient to the retirement. The patient will continue in the physical and occupational therapy at the retirement. The patient is very agreeable to be admitted to the retirement.
[2017-03-16 07:12] LABS: CHLORIDE,CL 107 mmol/L (98-107); SODIUM,NA 137 mmol/L (136-145)
--- NOTE | 2017-03-16 16:36 | PCM.PN ---
- General Info Date of Service: 03/16/17 Admission Dx/Problem (Free Text): Acute Kidney Injury Weakness Dehydration Hypomagnesemia Hypokalemia Lactic Acidosis Subjective Update: Since seen and examined today. Patient states that he is feeling much better today. Patient continues to have concerns about his profound weakness. The patient's denies any chest pain or shortness of breath. The patient states that he is eating well. The patient denies any problems with bowel movements or urination. The patient currently denies any pain. The patient has not had any nausea vomiting or diarrhea. Functional Status: Reports: Pain Controlled, Tolerating Diet, Urinating Pain Score: 0 - Review of Systems General: Reports: Weakness, Fatigue. Denies: Fever, Chills Pulmonary: Denies: Shortness of Breath, Cough Cardiovascular: Denies: Chest Pain, Palpitations Gastrointestinal: Denies: Abdominal Pain, Nausea, Vomiting Musculoskeletal: Reports: Other (generalized weakness) Skin: Reports: Other (venous statis BLE) Neurological: Reports: No Symptoms. Denies: Dizziness, Headache - Patient Data Vitals - Most Recent: Last Vital Signs Temp 36.3 C 03/16/17 14:00 Pulse 67 03/16/17 14:00 Resp 16 03/16/17 10:00 BP 141/82 H 03/16/17 14:00 Pulse Ox 99 03/16/17 14:00 Weight - Most Recent: 74.389 kg I&O - Last 24 Hours: Intake & Output 03/16/17 03/16/17 03/16/17 06:59 14:59 22:59 Intake Total 1346 700 Output Total 950 Balance 396 700 Lab Results Last 24 Hours: Laboratory Results - last 24 hr 03/16/17 03/16/17 Range/Units 06:28 06:28 WBC 2.3 L (4.0-10.0) x10^3/uL RBC 3.65 L (4.5-6.0) x10^6/uL Hgb 11.2 L (14.0-18.0) g/dL Hct 32.9 L (40.0-52.0) % MCV 90.1 (78.0-93.0) fL MCH 30.7 (26.0-32.0) pg MCHC 34.0 (32.0-36.0) g/dL RDW Coeff of Vernell 12.8 (10.0-15.0) % Plt Count 98 L (130-400) x10^3/uL Add Manual Diff Yes Neutrophils % (Manual) 63 (50-80) % Band Neutrophils % 3 (0-6) % Lymphocytes % (Manual) 29 (25-50) % Monocytes % (Manual) 3 (2-11) % Eosinophils % (Manual) 2 (0-4) % Platelet Estimate Decreased L Hypochromasia 1+ slight H Anisocytosis 2+ moderate H Fabián Cells 1+ slight H Schistocytes 1+ slight H Sodium 137 (136-145) mmol/L Potassium 4.6 (3.5-5.1) mmol/L Chloride 107 (98-107) mmol/L Carbon Dioxide 25 (21-32) mmol/L BUN 16 (7-18) mg/dL Creatinine 1.0 (0.70-1.30) mg/dL Est Cr Clr Drug Dosing 65.09 mL/min Estimated GFR (MDRD) > 60 Glucose 93 (74-106) mg/dL Calcium 8.1 L (8.5-10.1) mg/dL Corrected Calcium 9.30 (8.5-10.1) mg/dL Magnesium 1.9 (1.8-2.4) mg/dL Total Bilirubin 1.3 H (0.2-1.0) mg/dL AST 16 (15-37) U/L ALT 18 (16-63) U/L Alkaline Phosphatase 65 (46-116) U/L Total Protein 5.4 L (6.4-8.2) g/dL Albumin 2.5 L (3.4-5.0) g/dL Globulin 2.9 Albumin/Globulin Ratio 0.86 Med Orders - Current: Current Medications Acetaminophen (Tylenol) 650 mg PO Q4H PRN PRN Reason: Pain (Mild 1-3)/fever Ondansetron HCl (Zofran Odt) 4 mg PO Q6H PRN PRN Reason: nausea, able to take PO Sodium Chloride (Saline Flush) 10 ml FLUSH ASDIRECTED PRN PRN Reason: Keep Vein Open Discontinued Medications Potassium Chloride/Sodium Chloride (Normal Saline With 40 Meq Kcl) 1,000 mls @ 125 mls/hr IV ASDIRECTED [facility] Last Admin: 03/15/17 17:59 Dose: 125 mls/hr Magnesium Sulfate 2 gm/ Premix 50 mls @ 25 mls/hr IV ONETIME ONE Stop: 03/14/17 15:10 Last Admin: 03/14/17 14:15 Dose: 25 mls/hr Magnesium Sulfate 2 gm/ Premix 50 mls @ 25 mls/hr IV ONETIME ONE Stop: 03/15/17 11:34 Last Admin: 03/15/17 10:07 Dose: 25 mls/hr Influenza Virus Vaccine (Fluzone High-Dose ) 180 mcg IM .ONCE ONE Stop: 03/13/17 15:01 Last Admin: 03/15/17 14:59 Dose: 180 mcg Iopamidol (Isovue-300 (61%)) 100 ml IVPUSH ONETIME ONE Stop: 03/14/17 16:51 Last Admin: 03/14/17 16:52 Dose: 100 ml Pneumococcal Polyvalent Vaccine (Pneumovax 23) 25 mcg IM .ONCE ONE Stop: 03/13/17 15:01 Last Admin: 03/13/17 15:39 Dose: 25 mcg - Exam Quality Assessment: Urine Catheter General: Alert, Oriented, Cooperative, No Acute Distress HEENT: Pupils Equal, Pupils Reactive Lungs: Clear to Auscultation, Normal Respiratory Effort Cardiovascular: Regular Rate, Regular Rhythm, No Murmurs GI/Abdominal Exam: Normal Bowel Sounds, Soft, Non-Tender Peripheral Pulses: 2+: Radial (L), Radial (R) Skin: Warm, Dry Neurological: No New Focal Deficit - Problem List & Annotations (1) Acute kidney injury (nontraumatic) SNOMED Code(s): 65421450 Code(s): N17.9 - ACUTE KIDNEY FAILURE, UNSPECIFIED Status: Resolved Priority: High Current Visit: Yes (2) Weakness SNOMED Code(s): 55088304 Code(s): R53.1 - WEAKNESS Status: Acute Priority: Medium Current Visit : Yes (3) Dehydration SNOMED Code(s): 59661609 Code(s): E86.0 - DEHYDRATION Status: Resolved Priority: Medium Current Visit: Yes (4) Lactic acidosis SNOMED Code(s): 26656153 Code(s): E87.2 - ACIDOSIS Status: Resolved Priority: Medium Current Visit: Yes (5) Hypokalemia SNOMED Code(s): 17873529 Code(s): E87.6 - HYPOKALEMIA Status: Resolved Priority: Medium Current Visit: Yes (6) Abdominal pain SNOMED Code(s): 11085862 Code(s): R10.9 - UNSPECIFIED ABDOMINAL PAIN Status: Resolved Current Visit: No Onset Date: ~03/14/17 Qualifiers: Abdominal location: generalized Qualified Code(s): R10.84 - Generalized abdominal pain - Problem List Review Problem List Initiated/Reviewed/Updated: Yes - My Orders Last 24 Hours: My Active Orders 03/15/17 18:06 Sodium Chloride 0.9% [Saline Flush] 10 ml FLUSH ASDIRECTED PRN Convert IV to Saline Lock [OM.PC] Routine 03/17/17 05:11 BASIC METABOLIC PANEL,BMP [CHEM] Routine CBC WITH AUTO DIFF [HEME] Routine MAGNESIUM [CHEM] Routine - Plan Plan:: 77-year-old male patient with no past medical history is admitted to the observation unit at [facility] with a diagnosis of acute kidney injury, weakness, dehydration. The patient's acute kidney injury is responded well to fluid resuscitation. The patient BUN and creatinine have normalized. The patient 's lactic acidosis is also resolved secondary to fluid rehydration. The patient' s abdominal pain has resolved. The patient's bilirubin is getting better slowly. The patient continues to have profound weakness and does require the skilled services of physical and occupational therapy. Therefore, we will continue patient on acute cares for today. We'll continue to monitor the patient's lab work for his kidney function and bilirubin. The patient's abdominal CT scan was discussed with him in which it only showed some mild cholecystitis. Patient was accepted for admission to the [facility] in [place]. Our plan right now is for this patient to be admitted to the [facility] tomorrow. Dr. Browne will see this patient on 03/17/2017 and discharge him to [facility].
[2017-03-17 07:17] LABS: CHLORIDE,CL 106 mmol/L (98-107); SODIUM,NA 139 mmol/L (136-145)
--- NOTE | 2017-03-17 11:50 | PCM.DCSUM1 ---
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 Mild edema of lower legs and hyperpigmentation but no actual stasis ulcers as he has had previously. Treatment and Course in Hospital: He had IV fluid, creatinine improved, to 1.1 with GFR of > 60. He had some trouble voiding so he had a catheter placed but on removal the day prior to discharge he was voiding OK. Had a peripheral smear reviewed by pathology because of his pancytopenia, that is presently unavailable but I am having a to consider Hematology review. Condition on Discharge: -Alert but generally weak and willing to go to the detention -Heart sounds normal and regular -Decreased lung sounds, probably has some COPD even though he says he quit smoking in 75 -Edema and hyperpigmentation of lower legs but no active ulceration Discharge Plan: -Admit to [facility] -He will be getting good food there is I am not starting him on multivitamins, just p.r.n.Tylenol - Discharge Data Discharge Date: 03/17/17 Discharge Disposition: DC/Tfer to SNF 03 Condition: Good - Discharge Plan Home Medications: Home Meds Acetaminophen [Tylenol] 650 mg PO Q4H PRN tablet 03/17/17 [Rx] - Patient Data Vitals - Most Recent: Last Vital Signs Temp 36.6 C 03/17/17 05:45 Pulse 60 03/17/17 05:45 Resp 18 03/17/17 05:45 BP 125/78 03/17/17 05:45 Pulse Ox 98 03/17/17 05:45 Weight - Most Recent: 74.389 kg I&O - Last 24 hours: Intake & Output 03/16/17 03/17/17 03/17/17 22:59 06:59 14:59 Intake Total 550 350 360 Output Total 850 700 Balance -300 -350 360 Lab Results - Last 24 hrs: Laboratory Results - last 24 hr 02/06/18 02/09/18 02/09/18 Range/Units 13:30 06:25 06:25 WBC 2.4 L (4.0-10.0) x10^3/uL RBC 3.80 L (4.5-6.0) x10^6/uL Hgb 11.6 L (14.0-18.0) g/dL Hct 34.0 L (40.0-52.0) % MCV 89.5 (78.0-93.0) fL MCH 30.5 (26.0-32.0) pg MCHC 34.1 (32.0-36.0) g/dL RDW Coeff of Vernell 12.7 (10.0-15.0) % Plt Count 104 L (130-400) x10^3/uL Add Manual Diff Yes Neutrophils % (Manual) 54 (50-80) % Band Neutrophils % 5 (0-6) % Lymphocytes % (Manual) 30 (25-50) % Monocytes % (Manual) 8 (2-11) % Eosinophils % (Manual) 3 (0-4) % Platelet Estimate Decreased L Hypochromasia 1+ slight H Anisocytosis 1+ slight H Ovalocytes 1+ slight H Sodium 139 (136-145) mmol/L Potassium 4.2 (3.5-5.1) mmol/L Chloride 106 (98-107) mmol/L Carbon Dioxide 29 (21-32) mmol/L BUN 18 (7-18) mg/dL Creatinine 1.1 (0.70-1.30) mg/dL Est Cr Clr Drug Dosing 59.17 mL/min Estimated GFR (MDRD) > 60 Glucose 91 (74-106) mg/dL Calcium 8.4 L (8.5-10.1) mg/dL Magnesium 1.6 L (1.8-2.4) mg/dL Hepatitis A IgM Ab Non reactive (NR) Hep Bs Antigen Non reactive (NR) Hep B Core IgM Ab Non reactive (NR) Hepatitis C Antibody Non reactive (NR) Hepatitis Interpret See below Med Orders - Current: Current Medications Discontinued Medications Acetaminophen (Tylenol) 650 mg PO Q4H PRN PRN Reason: Pain (Mild 1-3)/fever Potassium Chloride/Sodium Chloride (Normal Saline With 40 Meq Kcl) 1,000 mls @ 125 mls/hr IV ASDIRECTED [facility] Last Admin: 03/15/17 17:59 Dose: 125 mls/hr Magnesium Sulfate 2 gm/ Premix 50 mls @ 25 mls/hr IV ONETIME ONE Stop: 03/14/17 15:10 Last Admin: 03/14/17 14:15 Dose: 25 mls/hr Magnesium Sulfate 2 gm/ Premix 50 mls @ 25 mls/hr IV ONETIME ONE Stop: 03/15/17 11:34 Last Admin: 03/15/17 10:07 Dose: 25 mls/hr Influenza Virus Vaccine (Fluzone High-Dose ) 180 mcg IM .ONCE ONE Stop: 03/13/17 15:01 Last Admin: 03/15/17 14:59 Dose: 180 mcg Iopamidol (Isovue-300 (61%)) 100 ml IVPUSH ONETIME ONE Stop: 03/14/17 16:51 Last Admin: 03/14/17 16:52 Dose: 100 ml Ondansetron HCl (Zofran Odt) 4 mg PO Q6H PRN PRN Reason: nausea, able to take PO Pneumococcal Polyvalent Vaccine (Pneumovax 23) 25 mcg IM .ONCE ONE Stop: 03/13/17 15:01 Last Admin: 03/13/17 15:39 Dose: 25 mcg Sodium Chloride (Saline Flush) 10 ml FLUSH ASDIRECTED PRN PRN Reason: Keep Vein Open *Q Meaningful Use (DIS) - VTE *Q VTE Criteria *Q: VTE Mechanical Contraindications *Q: At Risk for Falls - Stroke *Q Stroke Criteria *Q: - AMI *Q AMI Criteria *Q:
== END 2017-03-17 10:00 | DRG 683 ==
LOC: VM.ED 10:10 → VM.MS 12:10 → OBSVTOIN 13:14 → INTOOBSV 13:14 → OBSVTOIN 03-15 13:14 → UNDODISIN 03-17 10:00
PROVIDERS: ADMIT Nurse Practitioner Family; ATTEND Nurse Practitioner Family
DX: N17.9 Acute kidney failure, unspecified (principal); E87.2 Acidosis; N39.0 Urinary tract infection, site not specified; E86.0 Dehydration; R53.1 Weakness; E87.6 Hypokalemia; E83.42 Hypomagnesemia; F70 Mild intellectual disabilities; D64.9 Anemia, unspecified; D69.6 Thrombocytopenia, unspecified; R10.9 Unspecified abdominal pain
CPT/HCPCS: 36415; 51702; 71045; 74177; 80048; 80053; 80074; 81001; 82150; 82248; 82550; 83010; 83605; 83615; 83690; 83735; 84484; 85008; 85025; 85045; 85610; 86140; 90662; 93005; 96361; 96365; 96366; 97110-GO; 97110-GP; 97116-GP; 97161-GP; 97165-GO; 99285; G0008; G0009; G0378; J3475; J3480; Q9967